=== PATIENT | female | born 1985 | race Two or more races ===

== ENCOUNTER 2019-02-26 20:06 | Emergency (ER) | payer OTHER ==
--- NOTE | 2019-02-26 20:12 | PHYS DOC ---
Adult General Chief Complaint Chief Complaint: ".. I did work out ... high intensity this this morning..... But I was really hurting then denied get severe pain, left flank... So bad that I vomited... HPI HPI Patient is a 33 year old female who presents with above hx and complaints of left flank back pain. Patient denies any trauma and then the high-intensity workout this morning. Patient denies prior history of kidney stones. Pain is on left flank and seems to radiate towards Groin. No history immunosuppression. No history of travel. No specific ill c ontacts. No history of bad food intake. Pain at its peak was 10 out of 10. Pt. follows at [facility]. Review of Systems Review of Systems Constitutional: Denies fever or chills [] Eyes: Denies change in visual acuity, redness, or eye pain [] HENT: Denies nasal congestion or sore throat [] Respiratory: Denies cough or shortness of breath [] Cardiovascular: No additional information not addressed in HPI [] GI: Complaints of left flank abdominal pain,. The patient denies , bloody stools or diarrhea . The []patient complaints of nausea and vomiting : Denies dysuria or hematuria [] Musculoskeletal: Complaints of left flank back pain or joint pain [] Integument: Denies rash or skin lesions [] Neurologic: Denies headache, focal weakness or sensory changes [] Endocrine: Denies polyuria or polydipsia [] All other systems were reviewed and found to be within normal limits, except as documented in this note. Family History Family History Noncontributory Current Medications Current Medications See nursing for home meds Allergies Allergies No known drug allergies Physical Exam Physical Exam Constitutional: , no acute distress, non-toxic appearance. [] HENT: Normocephalic, atraumatic, bilateral external ears normal, oropharynx moist, no oral exudates, nose normal. [] Eyes: PERRLA, EOMI, conjunctiva normal, no discharge. [] Neck: Normal range of motion, no tenderness, supple, no stridor. [] Cardiovascular:Heart rate regular rhythm, no murmur [] Lungs & Thorax: Bilateral breath sounds clear to auscultation [] Abdomen: Bowel sounds decreased, soft, Lt flank tenderness, no masses, no pulsatile masses. []Obese. Old surgery scars Skin: Warm, dry, no erythema, no rash. [] Back: No tenderness, Lt. CVA tenderness. [] Extremities: No tenderness, no cyanosis, no clubbing, ROM intact, no edema. [] Neurologic: Alert and oriented X 3, normal motor function, normal sensory function, no focal deficits noted. [] Psychologic: Affec anxious, judgement normal, mood normal. [] EKG EKG [] Radiology/Procedures Radiology/Procedures [][place] [address] IMAGING REPORT Signed PATIENT: JENNIE OLIVIERACCOUNT: [id number] : 1985 LOCATION: ER AGE: 33 SEX: F EXAM STATUS: REG ER ORD. PHYSICIAN: LAURA ESCOBEDO MD REASON: Severe left flank pain, nausea. Hx: Cholecystectomy PROCEDURE: ACUTE ABDOMEN SERIES Three-view acute abdominal series. HISTORY: Left flank pain, nausea 3 views were taken for an acute abdominal series. Lungs are clear. Heart is normal in size. There is no pleural effusion. There is no free air on the upright view the abdomen. The patient had a cholecystectomy. Bowel pattern is normal. There are no abnormal air-fluid levels. There are no abnormal calcifications. IMPRESSION: 1. No acute chest disease. 2. No bowel obstruction or other acute finding in the abdomen. Electronically signed by: Jesus Bello MD (02/26/2019 9:35 PM) [facility] DICTATED AND SIGNED BY: JESUS BELLO MD DATE: 02/26/192134 CC: LAURA ESCOBEDO MD; PCP,UNKNOWN ~ [address] [address] IMAGING REPORT Signed PATIENT: JENNIE OLIVIERACCOUNT: [id number] : 1985 LOCATION: ER AGE: 33 SEX: F EXAM STATUS: REG ER ORD. PHYSICIAN: LAURA ESCOBEDO MD REASON: Severe left flank pain, nausea. Hx: Cholecystectomy PROCEDURE: CT ABDOMEN PELVIS WO CONTRAST Examination: CT abdomen pelvis without contrast HISTORY: History of severe left flank pain COMPARISON: None available TECHNIQUE: Axial CT images of the abdomen is performed without contrast. Coronal and sagittal reformats are performed. Exposure: One or more of the following individualized dose reduction techniques were utilized for this examination: 1. Automated exposure control 2. Adjustment of the mA and/or kV according to patient size 3. Use of iterative reconstruction technique FINDINGS: 4 mm nodule identified in the left lower lobe of the lung. No evidence of free air identified in the abdomen. The evaluation of the solid organs is limited due to lack of IV contrast. The evaluation of bowel is limited due to lack of oral contrast. The liver demonstrates mild decreased attenuation likely hepatic steatosis. The spleen, adrenals grossly appears unremarkable. Cholecystectomy clips identified. The stomach is mildly distended. The visualized pancreas grossly appears unremarkable. The small bowel is nondilated. The appendix is normal. Feces and gas identified in the colon. Urinary bladder is mildly distended. Bilateral intrarenal collecting system calculi with largest measuring 4 mm in the left kidney. No evidence of hydronephrosis. Urinary bladder is mildly distended. Tiny punctate air identified in the left buttock. There is a 5 cm, fat and probable omentum-containing ,hernia identified medial to the left rectus muscle extending into the anterior abdominal wall, best visualized on coronal image 35. Diastasis recti identified. No evidence of lytic or destructive lesion. IMPRESSION: 1. Bilateral nephrolithiasis without hydronephrosis. Tiny foci of air identified in the gallbladder could be due to recent instrumentation or cystitis. Correlate with urinary tract infection. 2. 5 cm hernia, containing fat and probably omentum , medial to the left rectus muscle extending into the anterior abdominal wall. Minimal fat stranding identified about the hernia. 3. Mild hepatic steatosis. 4. A 4 mm nodule identified in the left lower lobe of the lung follow-up per Bertrandner significant with follow-up CT in 12 months. Electronically signed by: Juni Esparza MD (02/26/2019 9:39 PM) [facility] DICTATED AND SIGNED BY: JUNI ESPARZA MD DATE: 02/26/192138 CC: LAURA ESCOBEDO MD; PCP,UNKNOWN ~ Course & Med Decision Making Course & Med Decision Making Pertinent Labs and Imaging studies reviewed. (See chart for details) Push fluids. Save kidney stone if passed. Follow up with primary and review ED labs. and CT. Zofran for active vomiting. Vicoprofen for marked pain. Return if any concerns. Follow up pending labs with primary. Impression- 1. Left flank back pain 2. Renal Colic 3. Mild elevation of AST and ALT 63/86. 4. Renal Stones- No hydronephrosis [] Dragon Disclaimer Dragon Disclaimer This electronic medical record was generated, in whole or in part, using a voice recognition dictation system. Departure Departure: Disposition: HOME/RESIDENCE PRIOR TO ADM Condition: STABLE Referrals: PCP,UNKNOWN (PCP) Scripts Hydrocodone/Ibuprofen (HYDROCODONE-IBUPROFEN 7.5-200 ) 1 Each Tablet 1 TAB PO PRN Q6HRS PRN for PAIN, #30 TAB 0 Refills Prov: LAURA ESCOBEDO MD 02/26/19 Ondansetron Hcl (ZOFRAN) 8 Mg Tablet 8 MG PO QIDPRN PRN for active vomiting, #30 BOTTLE Prov: LAURA ESCOBEDO MD 02/26/19 Dragon Disclaimer This chart was dictated in whole or in part using Voice Recognition software in a busy, high-work load, and often noisy Emergency Department environment. It may contain unintended and wholly unrecognized errors or omissions. Dragon Disclaimer This chart was dictated in whole or in part using Voice Recognition software in a busy, high-work load, and often noisy Emergency Department environment. It may contain unintended and wholly unrecognized errors or omissions. LAURA ESCOBEDO MD Feb 26, 2019 20:12
[2019-02-26] MEDS ORDERED: IV RINGERS SOLUTION,LACTATED 1,000 ML IV SCH (20:35)
[2019-02-26] MEDS ORDERED: FAMOTIDINE 20 MG/2 ML VIAL IVP ONE (21:00)
[2019-02-26] MEDS ORDERED: ONDANSETRON PF 4 MG/2 ML VIAL. IVP ONE (21:00)
[2019-02-26] MEDS ORDERED: MORPHINE SULFATE 10 MG/ML SYRINGE. SQ ONE (21:00)
[2019-02-26 21:10] LABS: BARBITURATES NEG (NEG); BENZODIAZEPINES NEG (NEG); CANNABINOIDS NEG (NEG); COCAINE NEG (NEG); METHADONE NEG (NEG); OPIATES NEG (NEG); PHENCYCLIDINE NEG (NEG)
[2019-02-26 21:14] LABS: BILIRUBIN,URINE NEG (NEG); CLARITY,URINE HAZY; COLOR,URINE YELLOW; GLUCOSE,URINE NEG (NEG); NITRITE,URINE NEG (NEG); UROBILINOGEN,URINE 0.2 mg/dL (0.2 mg/dL); WBC,URINE OCC /HPF (0-4)
[2019-02-26 21:15] LABS: BACTERIA,URINE FEW /HPF (0-FEW); SQUAMOUS EPITHELIAL CELL,UR MOD /LPF
[2019-02-26 21:17] LABS: AMPHETAMINE/METHAMPHETAMINE NEG (NEG)
[2019-02-26 21:30] LABS: CALCIUM 8.9 mg/dL (8.5-10.1); CREATININE 0.8 mg/dL (0.6-1.0); GFR 82.6; POTASSIUM 3.7 mmol/L (3.5-5.1)
[2019-02-26 21:34] LABS: ALBUMIN 4.1 g/dL (3.4-5.0); DIRECT BILIRUBIN 0.1 mg/dL (0.0-0.2); TOTAL BILIRUBIN 0.4 mg/dL (0.2-1.0); TOTAL PROTEIN 7.8 g/dL (6.4-8.2)
[2019-02-26 21:36] LABS: BASO % 1 % (0-3); EOS # 0.1 x10^3/uL (0.0-0.7); EOS % 2 % (0-3); HEMATOCRIT 40.7 % (36.0-47.0); HEMOGLOBIN 13.7 g/dL (12.0-15.5); LYMPH # 1.8 x10^3/uL (1.0-4.8); LYMPH % 27 % (24-48); MEAN CORPUSCULAR HEMOGLOBIN 29 pg (25-35); MEAN CORPUSCULAR HGB CONC 34 g/dL (31-37); MEAN CORPUSCULAR VOLUME 85 fL (79-100); MONO # 0.5 x10^3/uL (0.0-1.1); MONO % 7 % (0-9); NEUT # 4.2 x10^3uL (1.8-7.7); NEUT % 64 % (31-73); PLATELET COUNT 357 x10^3/uL (140-400); RED BLOOD COUNT 4.79 x10^6/uL (3.50-5.40); RED CELL DISTRIBUTION WIDTH 13.4 % (11.5-14.5); WHITE BLOOD COUNT 6.6 x10^3/uL (4.0-11.0)
--- NOTE | 2019-02-26 21:38 | RAD ---
Three-view acute abdominal series. HISTORY: Left flank pain, nausea 3 views were taken for an acute abdominal series. Lungs are clear. Heart is normal in size. There is no pleural effusion. There is no free air on the upright view the abdomen. The patient had a cholecystectomy. Bowel pattern is normal. There are no abnormal air-fluid levels. There are no abnormal calcifications. IMPRESSION: 1. No acute chest disease. 2. No bowel obstruction or other acute finding in the abdomen. Electronically signed by: Jesus Bello MD (02/26/2019 9:35 PM) [facility]
--- NOTE | 2019-02-26 21:42 | RAD ---
Examination: CT abdomen pelvis without contrast HISTORY: History of severe left flank pain COMPARISON: None available TECHNIQUE: Axial CT images of the abdomen is performed without contrast. Coronal and sagittal reformats are performed. Exposure: One or more of the following individualized dose reduction techniques were utilized for this examination: 1. Automated exposure control 2. Adjustment of the mA and/or kV according to patient size 3. Use of iterative reconstruction technique FINDINGS: 4 mm nodule identified in the left lower lobe of the lung. No evidence of free air identified in the abdomen. The evaluation of the solid organs is limited due to lack of IV contrast. The evaluation of bowel is limited due to lack of oral contrast. The liver demonstrates mild decreased attenuation likely hepatic steatosis. The spleen, adrenals grossly appears unremarkable. Cholecystectomy clips identified. The stomach is mildly distended. The visualized pancreas grossly appears unremarkable. The small bowel is nondilated. The appendix is normal. Feces and gas identified in the colon. Urinary bladder is mildly distended. Bilateral intrarenal collecting system calculi with largest measuring 4 mm in the left kidney. No evidence of hydronephrosis. Urinary bladder is mildly distended. Tiny punctate air identified in the left buttock. There is a 5 cm, fat and probable omentum-containing ,hernia identified medial to the left rectus muscle extending into the anterior abdominal wall, best visualized on coronal image 35. Diastasis recti identified. No evidence of lytic or destructive lesion. IMPRESSION: 1. Bilateral nephrolithiasis without hydronephrosis. Tiny foci of air identified in the gallbladder could be due to recent instrumentation or cystitis. Correlate with urinary tract infection. 2. 5 cm hernia, containing fat and probably omentum , medial to the left rectus muscle extending into the anterior abdominal wall. Minimal fat stranding identified about the hernia. 3. Mild hepatic steatosis. 4. A 4 mm nodule identified in the left lower lobe of the lung follow-up per Joan significant with follow-up CT in 12 months. Electronically signed by: Juni Esparza MD (02/26/2019 9:39 PM) [facility]
[2019-02-26] MEDS ORDERED: HYDR-1179 PO (22:06)
[2019-02-26] MEDS ORDERED: ONDA8TAB9 PO (22:06)
[2019-02-26] MEDS ORDERED: KETOROLAC 30 MG/ML VIAL. IVP ONE (22:15)
[2019-02-26] MEDS ORDERED: ORPHENADRINE CITRATE 60 MG/2 ML VIAL. IV ONE (22:15)
[2019-02-26 22:38] VITALS: BP 125/70
== END 2019-02-26 22:46 | disposition home or self-care (01) ==
LOC: ER 20:06
DX: N13.2 Hydronephrosis with renal and ureteral calculous obstruction (principal); R74.0 Nonspecific elevation of levels of transaminase and lactic acid dehydrogenase [LDH]; R11.2 Nausea with vomiting, unspecified
CPT/HCPCS: 36415; 74022; 74176; 80048; 80076; 80307; 81001; 81025; 83690; 84702; 85025; 85610; 85730; 86705; 86709; 86803; 87340; 96361; 96372; 96374; 96375; 99285; J1885; J2270; J2360; J2405; J3490; J7120